=== PATIENT | female | born 1975 | race Caucasian/White ===

== ENCOUNTER 2018-11-16 15:44 | Outpatient (CLI) | payer BC, SELFPAY ==
[2018-11-16 17:30] LABS: TSH (W/Ref FT4) 1.63 uIU/mL (0.36-3.74)
[2018-11-17 17:12] LABS: Estradiol 69 pg/ml
[2018-11-20 10:34] LABS: Testosterone, Free 0.55 ng/dL (0.06-0.98); Testosterone, Total 29 ng/dL (8-60)
[2018-11-20 11:47] LABS: FSH 5.9 mIU/ml; LH 9.6 mIU/ml; Prolactin 20.1 ng/ml
== END 2018-11-16 16:04 ==
PROVIDERS: PCP Nurse Practitioner Adult Health; Visit Provider Obstetrics & Gynecology
DX: N92.6 Irregular menstruation, unspecified (principal); N92.0 Excessive and frequent menstruation with regular cycle; E28.2 Polycystic ovarian syndrome
CPT/HCPCS: 36415; 84402; 84403; 82670; 83001; 83002; 84146; 84443